=== PATIENT | female | born 1975 | race Caucasian/White ===

== ENCOUNTER 2021-04-25 11:55 | Outpatient (CLI) | payer OTHER, SELFPAY ==
--- NOTE | 2021-04-25 12:05 | MM_ITS ---
WS: [id number] BILATERAL DIGITAL SCREENING MAMMOGRAPHY WITH CAD CLINICAL INFORMATION: SCREENING HISTORY: Screening mammogram. No current complaints. COMPARISON: TECHNIQUE: Bilateral CC and MLO views. FINDINGS: The breasts are composed of heterogeneous fibroglandular density tissue, which can limit the detectio n of small underlying mass lesions. Stable asymmetric tissue upper outer left breast is unchanged. A few tiny punctate calcifications left breast. No suspicious mass, asymmetry, calcifications, or archi tectural distortion. No evidence of malignancy. MM/[place] [id number] IMPRESSION: BI-RADS: 2-Benign FOLLOW UP: 1 Year Follow-up Recommend return to annual screening mammography.
== END 2021-04-25 11:56 | disposition home or self-care (01) ==
LOC: RADSHAW 12:01
PROVIDERS: PCP Nurse Practitioner Family; Visit Provider Nurse Practitioner Family
DX: Z12.31 Encounter for screening mammogram for malignant neoplasm of breast (principal)
CPT/HCPCS: 77067

== ENCOUNTER → 2022-10-24 09:00 | Outpatient (BNVA) | payer OTHER, SELFPAY | PROVIDERS: PCP Nurse Practitioner Family; Visit Provider Obstetrics & Gynecology | DX: N93.9 Abnormal uterine and vaginal bleeding, unspecified (principal); Z78.0 Asymptomatic menopausal state | CPT/HCPCS: 84443; 85025; 88305 ==

== ENCOUNTER → 2022-11-06 15:51 | Outpatient (BNVA) | payer OTHER, SELFPAY | PROVIDERS: PCP Nurse Practitioner Family; Visit Provider Obstetrics & Gynecology | DX: N93.9 Abnormal uterine and vaginal bleeding, unspecified (principal) | CPT/HCPCS: 76830 ==

== ENCOUNTER 2022-12-02 09:56 | Day surgery (SDC) | payer OTHER, SELFPAY ==
[2022-12-01 14:16] VITALS: BMI 34.7
[2022-12-02] VITALS (10 sets, daily range): BP systolic 120–151; BP diastolic 84–96; PULSE 62–82; RESP 16–20; TEMP 36.1–36.9; O2SAT 93–100
--- NOTE | 2022-12-02 10:22 | ANES.PREANE2 ---
Pre-Anesthetic Assessment Height/Weight: Height 1.73 m Weight 103.419 kg O2 Del Method Room Air 12/02/22 10:10 Preop Diagnosis: aub, fibroid uterus Operation Date: 12/02/22 14:25 Proposed Procedures p Hysteroscopy, dilation and curettage with Myosure [id number],N93.9, D25.9(Not Applicable) - Kami Otoole MD s Dilation And Curettage (D&C)(Not Applicable) - Kami Otoole MD Familial anesthetic complications: None Was Beta Jes taken within 24 hours: N/A Was Clonidine taken within 24 hours: N/A Last intake: > 8 hrs Social No alcohol and No tobacco Exam alert, oriented x 3, clear to auscultation bilaterally and regular rate & rhythm Airway Mallampati: Class III Dentition: full CV/HEM Anemia Anesthetic Plan ASA status: 2 Anesthesia: General Risk of > 500 ml blood loss (7ml/kg in children): No Medications/Allergies Home Medications Medication Instructions Recorded Confirmed Last Taken Type ferrous sulfate 27 mg iron tablet 27 mg PO DAILY 10/24/22 12/01/22 12/01/22 History magnesium 200 mg tablet 200 mg PO DAILY 10/24/22 12/01/22 12/01/22 History calcium cmb tab PO 11/12/22 11/28/22 Unknown History no.1-D0-B-[id number]-RN-D11-aloe 120 mg-1,000 unit-10 mg tablet (Heartburn and Acid Reflux with Aloe) Allergies Allergy/AdvReac Type Severity Reaction Status Date / Time Sulfa (Sulfonamide Allergy Severe ALGY-Anaphy Verified 11/28/22 15:48 Antibiotics) laxis [facility] Anesthesia Medical History Anemia Surgical History History of breast lump removal Family History Family/Other Breast cancer Maternal Aunt Father Heart disease Hypertension Grandfather Heart disease maternal Hypertension Paternal Diabetes Paternal Mother Hypertension Sister Hypertension Grandmother Hypertension Denies family history of Colon cancer Ovarian cancer Hypercholesteremia Uterine cancer Thyroid disease Stroke Data Anesthesia Cardiac Studies: No Data to Display
[2022-12-02] MEDS: sodium chloride 0.9% 1,000 ML 30 ML IV (10:27)
[2022-12-02 10:31] LABS: OR HCG Qualitative Urine Negative (Negative)
--- NOTE | 2022-12-02 12:26 | W.PM.OPSUD ---
Surgery/Procedure H&P Update DATE OF PROCEDURE: December 02, 2022 DATE H&P PERFORMED: 11/28/22 H&P UPDATE INFORMATION: I have reviewed H&P completed within last 30 days, I have examined patient prior to procedure and No changes to prior documentation PREOP DIAGNOSIS: aub, fibroid uterus PLANNED PROCEDURE: Operation Date: 12/02/22 14:25 Proposed Procedures p Hysteroscopy, dilation and curettage with Myosure [id number],N93.9, D25.9(Not Applicable) - Kami Otoole MD s Dilation And Curettage (D&C)(Not Applicable) - Kami Otoole MD Related Problem List Diagnoses (1) Fibroid uterus: (2) Abnormal uterine bleeding (AUB):
[2022-12-02] MEDS: ceFAZolin 2,000 MG in sodium chloride 0.9% (plus) 50 ML 100 MG IV (12:47)
--- NOTE | 2022-12-02 13:31 | P.OP_ITS ---
Operative Report Date of procedure: December 02, 2022 Pre-op diagnosis: Preop Diagnosis aub, fibroid uterus Post-op diagnosis: same Post-op findings: 12 week sized uterus with multiple polyps Procedure done: hysteroscopy, dilation and curettage with myosure Specimens removed/disposition: endometrial curettings to pathology Surgeon: Kami Otoole Anesthesia: General Estimated blood loss (mL): 2 IV fluids (mL): 800 Complications: none Findings: hysteroscopy deficit 470 ml Condition: stable Disposition: PACU Procedure: The patient was taken to the operating room where monitored anesthesia was administered and to be adequate. She was prepped and draped in the normal sterile fashion in the dorsal lithotomy position in [facility]. A weighted speculum was placed into the vagina and the anterior lip of the cervix grasped with a single-tooth tenaculum. The uterus was sounded to 12 cm. The cervix was dilated to 16 [place]. The hysteroscope was advanced into the endometrial cavity. There were multiple polyps visualized. The MyoSure device was activated and the tissue was removed. Pictures were taken pre and post procedure. All instruments were removed. The patient tolerated the procedure well. Sponge lap and needle counts were correct x3. She was taken to the recovery room in stable condition.
--- NOTE | 2022-12-02 13:36 | PM.DCS ---
Discharge Providers Date of Admission: 12/02/22 Date of Discharge: December 02, 2022 Attending Provider at Discharge: Kami Otoole MD Primary Care Provider: JOSIE Matute Diagnoses at Discharge Discharge Diagnosis (1) Fibroid uterus: Status: Acute (2) Abnormal uterine bleeding (AUB): Status: Acute Reason for Visit Reason for Visit: N93.9, D25.9 Hospital Course Hospital Course The patient was admitted for surgery. She did well postoperatively and was ready for discharge. Discharge Data Studies Completed and Pending Pending at discharge Category Date Time Status ES surgery / GI images Routine Exams 12/02/22 13:20 Ordered Laboratory Results Urine HCG, Qual Negative (Negative) 12/02/22 10:09 Vitals Last Vital Signs Temp 98.4 F 12/02/22 10:28 Pulse 82 12/02/22 10:28 Resp 18 12/02/22 10:28 BP 147/96 12/02/22 10:28 Pulse Ox 93 12/02/22 10:28 O2 Del Method Room Air 12/02/22 10:28 Discharge Plan Discharge Patient Disposition: Home Condition: Stable Prescriptions: Continued Heartburn and Acid Reflux-Aloe 120-1,000-10 mg-unit-mg tablet PO ferrous sulfate 27 mg iron tablet 27 mg PO DAILY magnesium 200 mg tablet 200 mg PO DAILY Discharge Orders: Discharge Order (Routine); Ordered 12/02/22 Ordered By: Kami Otoole Referrals: Kami Otoole MD [Physician] - 12/08/22 11:15 am Patient Instructions: Hysteroscopy (DC), Post Anesthesia Care Discharge Attestations Time Spent in Discharge Care*: less than 30 min Quality Metrics Clinical Quality Measures [ No reported AMI, CVA or VTE this stay] Coding Level of Care Code Acute Code for Chg Fwd Diagnoses Fibroid uterus D25.9 Abnormal uterine bleeding (AUB) N93.9
--- NOTE | 2022-12-02 13:59 | ANE.PACU2 ---
Inpatient post-anesthesia follow up: Airway intact: Yes Vital signs: Temperature 97.0 F Pulse Rate 66 Respiratory Rate 17 Blood Pressure 138/87 Pulse Oximetry 99 Oxygen Delivery Me thod Room Air Oxygen Flow Rate Fraction of Inspir ed Oxygen Hydration adequate: Yes Nausea and vomiting: No Pain level: 1 Mental status: Baseline
[2022-12-02] MEDS: ondansetron 2 mg/ML SDV 2 mL 4 MG IVP (14:26)
== END 2022-12-02 14:51 | disposition home or self-care (01) ==
PROVIDERS: Anesthesiology; PCP Nurse Practitioner Family; Visit Provider Obstetrics & Gynecology
PROC: 0UDB8ZZ Extraction of Endometrium, Via Natural or Artificial Opening Endoscopic (ICD-10-PCS; CPT 58558; principal; 2022-12-02 14:15)
PROC: (CPT 58120; 2022-12-02 14:15)
DX: N84.0 Polyp of corpus uteri (principal); D64.9 Anemia, unspecified; Z79.899 Other long term (current) drug therapy; Z88.2 Allergy status to sulfonamides
CPT/HCPCS: 58558; 81025; 84703; 88305; J0690; J1100; J1885; J2250; J2405; J2704; J3010; J7030

== ENCOUNTER → 2023-06-16 17:47 | Outpatient (BNVA) | payer OTHER, SELFPAY | PROVIDERS: PCP Nurse Practitioner Family; Visit Provider Registered Nurse Neonatal Intensive Care | DX: R05.9 Cough, unspecified (principal) | CPT/HCPCS: 87400 ==

== ENCOUNTER 2023-08-04 11:18 | Outpatient (CLI) | payer OTHER, SELFPAY ==
--- NOTE | 2023-08-04 11:25 | MM_ITS ---
WS: [id number] Bilateral screening 3D tomosynthesis digital mammogram, 08/04/2023 Clinical Data: SCREENING Comparison: 03/25/2021, 11/26/2016, 10/15/2016. Findings: The breast parenchymal pattern shows heterogeneous density. No spiculated masses or clustered calcifi cations are seen. There are no secondary signs of carcinoma. Impression: 1. Negative bilateral mammogram unchanged. 2. Recommend annual screening mammograms. MM/[place] [id number] BIRADS: 1-Negative FOLLOW UP: 1 Year Follow-up The CAD raspberry checker was used.
== END 2023-08-04 11:19 | disposition home or self-care (01) ==
LOC: RAD 11:19
PROVIDERS: PCP Nurse Practitioner Family; Visit Provider Family Medicine
DX: Z12.31 Encounter for screening mammogram for malignant neoplasm of breast (principal)
CPT/HCPCS: 77063; 77067

== ENCOUNTER 2024-10-17 10:55 | Outpatient (CLI) | payer OTHER, SELFPAY ==
--- NOTE | 2024-10-17 11:09 | MM_ITS ---
WS: [id number] BILATERAL 3D TOMOSYNTHESIS DIGITAL SCREENING MAMMOGRAPHY WITH CAD CLINICAL INFORMATION: SCREENING HISTORY: Screening mammogram. No current complaints. COMPARISON: 2023 TECHNIQUE: Bilateral CC and MLO views. FINDINGS: The breasts are composed of heterogeneous fibroglandular density tissue, which can limit the detection of small underlying mass lesions. No suspicious mass, asymmetry, calcifications, or architectural distortion. No evidence of malignancy. MM/MM scr tomosynthesis [id number] IMPRESSION: DENSITY: The breasts are heterogeneously dense, which may obscure small masses. BI-RADS: 1 - Negative FOLLOW UP: 1 Year Follow-up Recommend return to annual screening mammography.
== END 2024-10-17 10:56 | disposition home or self-care (01) ==
LOC: RAD 10:57
PROVIDERS: PCP Family Medicine; Visit Provider Family Medicine
DX: Z12.31 Encounter for screening mammogram for malignant neoplasm of breast (principal); R92.333 Mammographic heterogeneous density, bilateral breasts
CPT/HCPCS: 77063; 77067

== ENCOUNTER → 2025-03-31 18:19 | Outpatient (BNVA) | payer BC, SELFPAY | PROVIDERS: PCP Family Medicine; Visit Provider Emergency Medicine | DX: J02.9 Acute pharyngitis, unspecified (principal) | CPT/HCPCS: 87071; 87880 ==